=== PATIENT | male | born 1970 | race Caucasian/White ===

== ENCOUNTER 2020-11-13 18:18 | Emergency (ER) | payer OTHER ==
[~2020-11-13] VITALS: Ht 185.4 cm; Wt 101.2 kg
[2020-11-13] MEDS ORDERED: DIVALPROEX SOD500 MG PO (20:08)
[2020-11-13] MEDS ORDERED: FUROSEMIDE 40 M40 M1 PO (20:09)
[2020-11-13] MEDS ORDERED: FAMOTIDINE 20 M20 MG PO (20:09)
[2020-11-13] MEDS ORDERED: NORVASC5 MG PO (20:10)
[2020-11-13] MEDS ORDERED: NEURONTIN 300M300 M2 PO (20:10)
[2020-11-13] MEDS ORDERED: HYDROXYZINE HCL25 M2 PO (20:10)
[2020-11-13] MEDS ORDERED: LISINOPRIL5 MG PO (20:10)
[2020-11-13] MEDS ORDERED: LEXAPRO 10 MG T10 M2 PO (20:10)
[2020-11-13] MEDS ORDERED: OXYBUTYNIN 5 MG5 M2 PO (20:11)
[2020-11-13] MEDS ORDERED: OLANZAPINE20 MG PO (20:11)
[2020-11-13 20:50] LABS: ABSOLUTE NEUTROPHILS 3.5 thou/uL (1.4-8.2); BASOPHILS 0.4 % (0.0-2.0); EOSINOPHILS 3.1 % (0.0-3.0); HEMOGLOBIN 13.7 gm/dL (14.0-18.0); LYMPHOCYTES 35.4 % (24.0-44.0); MCHC 33.4 g/dL (28.0-37.0); MONOCYTES 9.3 % (1.0-8.0); PLATELET COUNT 269 thou/uL (150-400); POLYS 51.8 % (36.0-66.0); RBC 4.55 mil/uL (4.50-6.00); RDW 14.4 % (10.5-14.5); WBC 6.7 thou/uL (4.0-11.0)
[2020-11-13 20:54] LABS: ANION GAP 13 mmol/L (7-16); CALCIUM 8.9 mg/dL (8.5-10.1); CHLORIDE 101 mmol/L (98-107); CO2 25 mmol/L (21-32); CREATININE 0.9 mg/dL (0.7-1.3); GLUCOSE 91 mg/dL (74-106); POTASSIUM 4.8 mmol/L (3.5-5.1); SODIUM 139 mmol/L (136-145)
[2020-11-13 21:25] LABS: ALBUMIN 3.6 g/dL (3.4-5.0); BUN 22 mg/dL (7-18); SGOT 35 U/L (15-37); SGPT 26 U/L (30-65); TOTAL BILIRUBIN 0.4 mg/dL (0.2-1.0); TOTAL PROTEIN 7.3 g/dL (6.4-8.2)
[2020-11-13 22:30] VITALS: BP 140/110
--- NOTE | 2020-11-15 08:15 | EKG ---
[facility] [place] [address] ELECTROCARDIOGRAM REPORT Name: DARLINE BOWMAN Room #: DEP MAHNAZ Garcia#: [id number] Admission: 11/13/20 Attend Phys: Discharge: 11/14/20 Date of : 74 Report #: [id number] [facility] ED Test Date: 2020-11-13 Test Time: 18:40:39 Pat Name: DARLINE BOWMAN Department: Room: Gender: M Adult Manager: MANSOOR : 1970 Requested By: Lemuel Mckeon Order Number: [id number] MD: Chaz Chung Measurements Intervals [place] Rate: 103 P: 48 IN: 132 QRS: -31 QRSD: 87 T: 34 QT: 324 QTc: 424 Interpretive Statements Sinus tachycardia Left axis deviation Abnormal R-wave progression, late transition No previous ECG available for comparison Electronically Signed On 11-15-2020 8:14:50 CDT by Chaz Chung [email or web address] <ELECTRONICALLY SIGNED> By: Chaz Chung MD, [facility] 11/15/20 0814 1840 1840 Chaz Chung MD, FACC /EPI
== END 2020-11-14 00:40 | disposition home or self-care (01) ==
LOC: ER 18:18
PROVIDERS: Emergency Medicine
DX: E86.0 Dehydration (principal); R42 Dizziness and giddiness; Z79.899 Other long term (current) drug therapy